=== PATIENT | male | born 1980 | race Caucasian/White ===

== ENCOUNTER 2017-07-25 18:10 | Emergency (ER) | payer MEDICAID ==
[2009-12-09 13:27] VITALS: BMI 32.9
== END 2017-07-25 21:05 | disposition home or self-care (01) ==
LOC: D.ER 18:10
DX: M25.551 Pain in right hip (principal); M54.5 Low back pain; R51 Headache; V23.4XXA Motorcycle driver injured in collision with car, pick-up truck or van in traffic accident, initial encounter; Y93.89 Activity, other specified; Y92.410 Unspecified street and highway as the place of occurrence of the external cause; F17.200 Nicotine dependence, unspecified, uncomplicated